=== PATIENT | female | born 1975 | race African-American/Black ===

== ENCOUNTER 2017-04-03 17:43 | Emergency (ER) | payer SELFPAY ==
[2017-04-03 18:53] LABS: BILIRUBIN,URINE NEGATIVE (NEG); CLARITY,URINE CLEAR; COLOR,URINE YELLOW; GLUCOSE,URINE NEGATIVE (NEG); NITRITE,URINE NEGATIVE (NEG); PROTEIN,URINE NEGATIVE (NEG-TRACE); UROBILINOGEN,URINE 0.2 mg/dL (0.2 mg/dL)
[2017-04-03 19:10] LABS: BACTERIA,URINE 0 /HPF (0-FEW); SQUAMOUS EPITHELIAL CELL,UR MOD /LPF; WBC,URINE 0 /HPF (0-4)
[2017-04-03 19:16] LABS: ADD MAN DIFF? NO
[2017-04-03 19:17] LABS: BASO # 0.1 x10^3/uL (0.0-0.2); BASO % 1 % (0-3); EOS # 0.1 x10^3/uL (0.0-0.7); EOS % 2 % (0-3); HEMATOCRIT 39.5 % (36.0-47.0); HEMOGLOBIN 13.6 g/dL (12.0-15.5); LYMPH # 2.3 x10^3/uL (1.0-4.8); LYMPH % 46 % (24-48); MEAN CORPUSCULAR HEMOGLOBIN 31 pg (25-35); MEAN CORPUSCULAR HGB CONC 35 g/dL (31-37); MEAN CORPUSCULAR VOLUME 91 fL (79-100); MONO # 0.2 x10^3/uL (0.0-1.1); MONO % 4 % (0-9); NEUT # 2.4 x10^3uL (1.8-7.7); NEUT % 47 % (31-73); PLATELET COUNT 345 x10^3/uL (140-400); RED BLOOD COUNT 4.33 x10^6/uL (3.50-5.40); RED CELL DISTRIBUTION WIDTH 13.8 % (11.5-14.5)
[2017-04-03] MEDS: IV NORMAL SALINE 1000ML BAG 1,000 ML IV ×2 (19:24)
[2017-04-03] MEDS: ONDANSETRON PF 4 MG/2 ML VIAL. IV ×2 (19:26)
[2017-04-03] MEDS: LIDO:MAALOX:DONNATAL 1:1:1 15 ML SINGLE DOSE SWSW ×2 (19:26)
[2017-04-03] MEDS: PANTOPRAZOLE IV PUSH 40 MG VIAL. IVP ×2 (19:27)
[2017-04-03] MEDS: fentaNYL PF VIAL 100 MCG/2 ML VIAL IV ×2 (19:28)
[2017-04-03 19:33] LABS: ANION GAP 5 (6-14); BLOOD UREA NITROGEN 10 mg/dL (7-20); BUN/CREATININE RATIO 13 (6-20); CALCIUM 8.7 mg/dL (8.5-10.1); CARBON DIOXIDE 30 mmol/L (21-32); CHLORIDE 104 mmol/L (98-107); CREATININE 0.8 mg/dL (0.6-1.0); GFR 96.6; GLUCOSE 92 mg/dL (70-99); POTASSIUM 3.9 mmol/L (3.5-5.1); SODIUM 139 mmol/L (136-145)
[2017-04-03 19:38] LABS: ALBUMIN 3.7 g/dL (3.4-5.0); ALK PHOS 78 U/L (46-116); ALT (SGPT) 17 U/L (14-59); AST (SGOT) 15 U/L (15-37); LIPASE 128 U/L (73-393); MAGNESIUM 2.1 mg/dL (1.8-2.4); TOTAL BILIRUBIN 0.3 mg/dL (0.2-1.0); TOTAL PROTEIN 7.3 g/dL (6.4-8.2)
[2017-04-03] MEDS: MORPHINE SULFATE 10 MG/ML VIAL. IV ×2 (20:44)
[2017-04-03] MEDS: FAMOTIDINE 20 MG TABLET. PO ×2 (20:44)
[2017-04-03] MEDS: PROMETHAZINE 12.5 MG in IV NORMAL SALINE 50ML 50 ML IV (20:44)
== END 2017-04-03 21:23 | disposition home or self-care (01) ==
LOC: ER 17:43
DX: R10.11 Right upper quadrant pain (principal); R10.13 Epigastric pain; R11.0 Nausea; R19.7 Diarrhea, unspecified; J45.909 Unspecified asthma, uncomplicated; Z90.710 Acquired absence of both cervix and uterus; Z91.041 Radiographic dye allergy status
CPT/HCPCS: 36415; 74176; 80053; 81001; 83690; 83735; 85025; 96361; 96365; 96375; 99285-25; C9113; J2270; J2405; J2550; J3010; J7030

== ENCOUNTER 2017-10-18 21:48 | Emergency (ER) | payer SELFPAY ==
[2017-04-03 21:10] VITALS: BP 141/83
[~2017-10-18 21:48] MED LIST: CYCL10TA2 PO; ERYT1OIN5 LEFTEYE; HYDR-971 PO; OMEP20TA63 PO; ONDA4TAB10 PO
== END 2017-10-18 22:48 | disposition left against medical advice (07) ==
LOC: ER 21:48
DX: N93.8 Other specified abnormal uterine and vaginal bleeding (principal); Z53.21 Procedure and treatment not carried out due to patient leaving prior to being seen by health care provider

== ENCOUNTER 2017-10-19 14:13 | Emergency (ER) | payer SELFPAY ==
[~2017-10-19] VITALS: Ht 160 cm; Wt 72.6 kg
[2017-10-19 15:31] LABS: BILIRUBIN,URINE NEGATIVE (NEG); CLARITY,URINE CLEAR; COLOR,URINE YELLOW; NITRITE,URINE NEGATIVE (NEG); PH,URINE 6.5; PROTEIN,URINE NEGATIVE (NEG-TRACE)
--- NOTE | 2017-10-19 16:00 | PHYS DOC ---
Past Medical History Past Medical History: No Pertinent History, Asthma Past Surgical History: Appendectomy, Hysterectomy, Other Additional Past Surgical Histo: BREAST REDUCTION,BLOOD CLOTS REMOVED FROM FALLOPIAN TUBES Alcohol Use: Occasionally Drug Use: None Adult General Chief Complaint Chief Complaint: VAGINAL BLEEDING [place] [facility] [employer] HPI Patient is a 42 year old female who presents with vaginal bleeding and some pelvic cramping. Patient noted some bleeding over the last 2 days that has improved. Now she only complains of some spotting on the tissue. Previously she had passed a small amount of blood and clots that she states was less than are normal.. She also has some pain. She denies vaginal discharge that is abnormal. The patient does engage in lesbian intercourse but does not insert anything into her vagina other than the nurse. She has not had a fever or chills. She is status post hysterectomy and complete oophorectomy. Review of Systems Review of Systems Constitutional: Denies fever or chills Eyes: Denies change in visual acuity HENT: Denies nasal congestion Respiratory: Denies cough or shortness of breath Cardiovascular: No additional information not addressed in HPI GI: Denies abdominal pain, nausea, vomiting : Denies dysuria Musculoskeletal: Denies back pain Integument: Denies rash Neurologic: Denies headache Endocrine: Denies polyuria All other systems were reviewed and found to be within normal limits, except as documented in this note. Allergies Allergies Allergies Coded Allergies Type Severity Reaction Last Updated Verified iodine Allergy Intermediate 07/18/14 Yes Iodine and Iodide Containing Produc Allergy Unknown 10/19/17 Yes Physical Exam Physical Exam Constitutional: Well developed, well nourished, no acute distress, non-toxic appearance HENT: Normocephalic, atraumatic, bilateral external ears normal, oropharynx moist, no oral exudates Eyes: PERRLA, EOMI, conjunctiva normal Neck: Normal range of motion Cardiovascular:Heart rate regular rhythm, no murmur Lungs & Thorax: Bilateral breath sounds clear to auscultation Abdomen: Bowel sounds normal, soft, no tenderness Skin: Warm, dry Back: No tenderness Neurologic: Alert and oriented X 3 Psychologic: Affect normal Pelvic: Normal female external genitalia. Vaginal mucosa is moist and noninflamed. Deep in the vagina along the anterior and posterior baez, there are some abrasions and injected tissue. There is some yellow/green discharge present in the vault. Current Patient Data Vital Signs Vital Signs Date Time Temp Pulse Resp B/P (MAP) Pulse Ox O2 Delivery O2 Flow Rate FiO2 10/19/17 14:33 98.8 90 16 157/104 (121) 100 Room Air 98.8 Lab Values Laboratory Tests Test 10/19/17 14:50 Urine Collection Type Void Urine Color Yellow Urine Clarity Clear Urine pH 6.5 Urine Specific [place] [facility] 1.020 Urine Protein Negative mg/dL (NEG-TRACE) Urine Glucose (UA) Negative mg/dL (NEG) Urine Ketones (Stick) Negative mg/dL (NEG) Urine Blood Small (NEG) Urine Nitrite Negative (NEG) Urine Bilirubin Negative (NEG) Urine Urobilinogen Dipstick 1.0 mg/dL (0.2 mg/dL) Urine Leukocyte Esterase Small (NEG) Urine RBC 3-5 /HPF (0-2) Urine WBC 1-4 /HPF (0-4) Urine Squamous Epithelial Cells Few /LPF Urine Bacteria Few /HPF (0-FEW) Urine Mucus Marked /LPF Microbiology 10/19/17 Wet Prep - Final, Complete EKG EKG [] Radiology/Procedures Radiology/Procedures Vaginal abrasion Course & Med Decision Making Course & Med Decision Making Pertinent Labs and Imaging studies reviewed. (See chart for details) 15:55: Patient is seen and examined for vaginal complaints. She is status post hysterectomy. Pelvic exam was completed and documented above. Examination was accompanied by female registered nurse. Suspect the source of her complaint to be abraded skin and tissue inside the vagina. Gonorrhea and chlamydia screening is completed although these seem unlikely given that the patient has a uterus. Trichomonas screen is also sent to lab and is pending. 16:20: All results are reviewed and discussed with the patient. There is no Trichomonas seen on wet mount. Gonorrhea and chlamydia are pending. Suspect the patient's source of bleeding to be some minor abrasions found during her vaginal exam. Proper lubrication is discussed with the patient for sexual activity. Patient will follow up with her primary doctor. All of her questions are answered prior to discharge home. Dragon Disclaimer Dragon Disclaimer This electronic medical record was generated, in whole or in part, using a voice recognition dictation system. Departure Departure Referrals: NO PCP (PCP) LEO POOL DO Oct 19, 2017 16:00
[2017-10-19 16:22] LABS: BACTERIA,URINE FEW /HPF (0-FEW); SQUAMOUS EPITHELIAL CELL,UR FEW /LPF
[2017-10-19 16:38] VITALS: BP 143/82
== END 2017-10-19 16:38 | disposition home or self-care (01) ==
LOC: ER 14:13
DX: S30.814A Abrasion of vagina and vulva, initial encounter (principal); J45.909 Unspecified asthma, uncomplicated; Z90.710 Acquired absence of both cervix and uterus; Z90.89 Acquired absence of other organs; Z91.041 Radiographic dye allergy status; X58.XXXA Exposure to other specified factors, initial encounter; Y93.89 Activity, other specified; Y92.89 Other specified places as the place of occurrence of the external cause; Y99.8 Other external cause status
CPT/HCPCS: 81001; 99284; Q0111

== ENCOUNTER 2019-04-05 10:45 | Emergency (ER) | payer SELFPAY ==
[~2019-04-05] VITALS: Ht 160 cm; Wt 71.8 kg
[~2019-04-05 10:45] MED LIST changes: +HYDR-3164 PO; -HYDR-971 PO
[2019-04-05 11:08] VITALS: BP 179/107
--- NOTE | 2019-04-05 11:30 | PHYS DOC ---
Past Medical History Past Medical History: No Pertinent History, Asthma, Other Additional Past Medical Histor: kidney stone removed Past Surgical History: Appendectomy, Hysterectomy, Other Additional Past Surgical Histo: BREAST REDUCTION,BLOOD CLOTS REMOVED FROM FALLOPIAN TUBES Alcohol Use: Occasionally Drug Use: None Adult General Chief Complaint Chief Complaint: JASMYNLER HPI HPI Patient is a 43 year old female who presents with left shoulder pain has been ongoing for 2 weeks. Patient denies any trauma. The patient states that started after she woke up. She states that the pain is worse when she moves her neck. Denies any additional symptoms. Complete ROS were reviewed and found to be within normal limits, except as documented in the HPI Allergies Allergies Allergies Coded Allergies Type Severity Reaction Last Updated Verified iodine Allergy Intermediate 07/18/14 Yes Iodine and Iodide Containing Produc Allergy Unknown 10/19/17 Yes Physical Exam Physical Exam Constitutional: Well developed, well nourished, no acute distress, non-toxic appearance. [] HENT: Normocephalic, atraumatic, bilateral external ears normal, oropharynx moist, no oral exudates, nose normal. [] Eyes: PERRLA, EOMI, conjunctiva normal, no discharge. [] Skin: Warm, dry, no erythema, no rash. [] Back: No tenderness, no CVA tenderness. [] Extremities: Trigger points in the Trapezius muscle. Neurologic: Alert and oriented X 3, normal motor function, normal sensory function, no focal deficits noted. [] Psychologic: Affect normal, judgement normal, mood normal. [] Current Patient Data Vital Signs Vital Signs Date Time Temp Pulse Resp B/P (MAP) Pulse Ox O2 Delivery O2 Flow Rate FiO2 04/05/19 11:08 98.1 76 18 179/107 (131) 99 Room Air 98.1 EKG EKG [] Radiology/Procedures Radiology/Procedures [] Course & Med Decision Making Course & Med Decision Making Pertinent Labs and Imaging studies reviewed. (See chart for details) Patient appears to have a musculoskeletal strain. Discussed non-pharmacological interventions for patient such as ThermaCare Heat patch, and foam roller. A medical screening exam was performed on this patient and the patient does not appear to be having a medical emergency. Her symptoms are not of sufficient severity and within reasonable medical probability it is unlikely the absence of immediate medical attention would result in placing the health of the individual (or, with respect to a woman, the health of the woman or her unborn child) in serious jeopardy, serious impairment to bodily functions, or serious dysfunction of any bodily organ or part. If , the patient is not in labor Dragon Disclaimer Dragon Disclaimer This electronic medical record was generated, in whole or in part, using a voice recognition dictation system. Departure Departure Impression: Primary Impression: Encounter for medical screening examination Disposition: HOME, SELF-CARE Condition: STABLE Referrals: NO PCP (PCP) Patient Instructions: Medical Screening Exam Additional Instructions: Thank you for visiting [facility]. We appreciate you trusting us with your care. If any additional problems come up don't hesitate to return to visit us. Please follow up with your primary care provider so they can plan additional care if needed and know about the problem that you had. If symptoms worsen come back to the Emergency Department. Any concerning symptoms that start such as chest pain, shortness of air, weakness or numbness on one side of the body, running high fevers or any other concerning symptoms return to the ER. OUMOU MUÑIZ APRN Apr 05, 2019 11:30
== END 2019-04-05 11:35 | disposition home or self-care (01) ==
LOC: ER 10:45
DX: M25.512 Pain in left shoulder (principal); J45.909 Unspecified asthma, uncomplicated; Z87.442 Personal history of urinary calculi; Z90.89 Acquired absence of other organs; Z90.710 Acquired absence of both cervix and uterus; Z98.890 Other specified postprocedural states; Z88.1 Allergy status to other antibiotic agents
CPT/HCPCS: 99281

== ENCOUNTER 2019-11-23 10:01 | Emergency (ER) | payer SELFPAY ==
[~2019-11-23] VITALS: Ht 160 cm; Wt 71.0 kg
[2019-11-23] MEDS ORDERED: FAMOTIDINE 20 MG/2 ML VIAL IVP ONE (10:45)
[2019-11-23] MEDS ORDERED: ONDANSETRON PF 4 MG/2 ML VIAL. IVP ONE (10:45)
--- NOTE | 2019-11-23 10:49 | PHYS DOC ---
Past Medical History Past Medical History: No Pertinent History, Asthma, Other Additional Past Medical Histor: kidney stone removed Past Surgical History: Appendectomy, Hysterectomy, Other Additional Past Surgical Histo: BREAST REDUCTION,BLOOD CLOTS REMOVED FROM FALLOPIAN TUBES Smoking Status: Former Smoker Alcohol Use: Occasionally Drug Use: None General Adult EDM: Chief Complaint: NAUSEA/VOMITING/DIARRHA HPI: HPI: 44-year-old female with history of nephrolithiasis, prior hysterectomy and appendectomy, who presents for evaluation of several hours of epigastric pain, dull and colicky, associated with nonbloody/nonbilious emesis. No diarrhea or constipation. Last bowel movement this morning, slightly loose. She also reports some back pain last week, that is more or less improved today. Review of Systems: Review of Systems: Gen: No fever, chills. Eyes: No blurred vision, diplopia. ENT: No nasal congestion, sore throat. CV: No CP, palpitations. Resp. No SOB, cough. GI: Reports epigastric abd pain, N/V. : No dysuria, hematuria. Neuro: No ASH, dizziness, weakness. MSK: No myalgia, arthralgia. Reports transient mid back pain. Skin: No acute rash or lesion. Heart Score: Risk Factors: Risk Factors: DM, Current or recent (<one month) smoker, HTN, HLP, family history of CAD, obesity. Risk Scores: Score 0 - 3: 2.5% MACE over next 6 weeks - Discharge Home Score 4 - 6: 20.3% MACE over next 6 weeks - Admit for Clinical Observation Score 7 - 10: 72.7% MACE over next 6 weeks - Early Invasive Strategies Current Medications: Current Medications Medications (Trade) Dose Ordered Sig/Michelle Start Time Stop Time Status Last Admin Dose Admin Famotidine (Pepcid Vial) 20 mg 1X ONCE 11/23/19 10:45 11/23/19 10:46 UNV Ondansetron HCl (Zofran) 4 mg 1X ONCE 11/23/19 10:45 11/23/19 10:46 UNV Allergies: Allergies: Allergies Coded Allergies Type Severity Reaction Last Updated Verified iodine Allergy Intermediate 07/18/14 Yes Iodine and Iodide Containing Produc Allergy Unknown 10/19/17 Yes Physical Exam: PE: Gen: NAD. Well nourished. Head: NC/AT. Eyes: No scleral icterus. No conjunctival injection. ENT: MMM. Posterior OP clear. Neck: Supple. NT. No JVD. CV: RRR. Peripheral pulses intact. Resp: CTAB. Abd: Soft. Nondistended. Mild midepigastric tenderness to deep palpation w ithout rebound, guarding, rigidity. MSK: No peripheral cyanosis. No edema. Neuro: A&Ox3. Strength & sensation grossly intact throughout. Skin. Warm. Dry. Psych: Appropriate mood & affect. Current Patient Data: Labs: Laboratory Tests Test 11/23/19 10:42 POC Urine HCG, Qualitative Hcg negative (Negative) EKG: EKG: [] Radiology/Procedures: Radiology/Procedures: Exam: CT abdomen/pelvis without intravenous contrast Indication: Epigastric pain, nausea and vomiting, history of hysterectomy and appendectomy Comparison: CT abdomen and pelvis 04/03/2017 Technique: Helical CT imaging performed of the abdomen and pelvis without the use of intravenous contrast. Sagittal and coronal reformats were obtained. One or more of the following individualized dose reduction techniques were utilized for this examination: 1. Automated exposure control 2. Adjustment of the mA and/or kV according to patient size 3. Use of iterative reconstruction technique. Findings: Inherently limited evaluation without intravenous contrast. Lower chest: Lung bases are clear. Heart is normal in size Liver: Normal Gallbladder/Biliary Tree: Normal Pancreas: Normal Spleen: Calcified splenic granulomas. No symmetrically. Adrenal Glands: Normal Kidneys/Ureters/Bladder: The kidneys are normal in size. No hydronephrosis or urolithiasis. Ureters are nondilated. Bladder is normal. Reproductive Organs: Uterus is surgically absent. No adnexal mass. Stomach, small bowel, and colon: Stomach is normal. No small bowel obstruction. There are surgical changes of appendectomy and left inguinal hernia repair. Vasculature: Abdominal aorta is normal in caliber. Minimal aortic calcifications. Lymph Nodes: No lymphadenopathy. Peritoneum and retroperitoneum: No free fluid or free air. Bones: No acute osseous abnormality Impression: No acute intra-abdominal/pelvic abnormality. Electronically signed by: Taisha Nguyen MD (11/23/2019 11:36 AM) [id number] Course & Med Decision Making: Course & Med Decision Making Pertinent Labs and Imaging studies reviewed. (See chart for details) In summary, 44-year-old female who presents for evaluation of several hours of upper abdominal pain, nausea and vomiting. No diarrhea, constipation, flank pain, dysuria, hematuria, fever or chills. Benign abdominal examination. Hemodynamically stable. Lab work is otherwise unrevealing. CT abdomen/pelvis fails to reveal any acute intra-abdominal pathology. Possible viral gastroenteritis. Remains well-appearing and nontoxic. Will be discharged home with prescriptions for Zofran, Pepcid, Bentyl. Return precautions given. Adryan Disclaimer: Adryan Disclaimer: This electronic medical record was generated, in whole or in part, using a voice recognition dictation system. Departure Departure Impression: Primary Impression: Epigastric abdominal pain Additional Impression: Nausea & vomiting Disposition: HOME, SELF-CARE Condition: STABLE Referrals: NO PCP (PCP) Patient Instructions: Viral Gastroenteritis, [id number] Scripts Famotidine (PEPCID) 20 Mg Tablet 20 MG PO BID, #30 TAB Prov: KELSEA MARTINEZ DO 11/23/19 Dicyclomine Hcl (DICYCLOMINE HCL) 10 Mg Capsule 1 CAP PO TID for abdominal cramping, #20 CAP 11 Refills Prov: KELSEA MARTINEZ DO 11/23/19 Ondansetron (ONDANSETRON ODT) 4 Mg Tab.rapdis 1 TAB PO PRN Q6-8HRS, #16 TAB Prov: KELSEA MARTINEZ DO 11/23/19 Justicifation of Admission Dx: Justifications for Admission: Justification of Admission Dx: N/A KELSEA MARTINEZ DO Nov 23, 2019 10:49
[2019-11-23] MEDS ORDERED: IV NORMAL SALINE 1000ML BAG 1,000 ML IV ONE (11:00)
[2019-11-23 11:39] LABS: BASO # 0.1 x10^3/uL (0.0-0.2); BASO % 1 % (0-3); EOS % 1 % (0-3); HEMATOCRIT 38.5 % (36.0-47.0); HEMOGLOBIN 13.4 g/dL (12.0-15.5); LYMPH # 1.3 x10^3/uL (1.0-4.8); LYMPH % 23 % (24-48); MEAN CORPUSCULAR HEMOGLOBIN 32 pg (25-35); MEAN CORPUSCULAR HGB CONC 35 g/dL (31-37); MEAN CORPUSCULAR VOLUME 91 fL (79-100); MONO # 0.2 x10^3/uL (0.0-1.1); MONO % 4 % (0-9); NEUT # 3.8 x10^3/uL (1.8-7.7); NEUT % 71 % (31-73); PLATELET COUNT 323 x10^3/uL (140-400); RED BLOOD COUNT 4.25 x10^6/uL (3.50-5.40); RED CELL DISTRIBUTION WIDTH 13.2 % (11.5-14.5); WHITE BLOOD COUNT 5.4 x10^3/uL (4.0-11.0)
--- NOTE | 2019-11-23 11:39 | RAD ---
Exam: CT abdomen/pelvis without intravenous contrast Indication: Epigastric pain, nausea and vomiting, history of hysterectomy and appendectomy Comparison: CT abdomen and pelvis 04/03/2017 Technique: Helical CT imaging performed of the abdomen and pelvis without the use of intravenous contrast. Sagittal and coronal reformats were obtained. One or more of the following individualized dose reduction techniques were utilized for this examination: 1. Automated exposure control 2. Adjustment of the mA and/or kV according to patient size 3. Use of iterative reconstruction technique. Findings: Inherently limited evaluation without intravenous contrast. Lower chest: Lung bases are clear. Heart is normal in size Liver: Normal Gallbladder/Biliary Tree: Normal Pancreas: Normal Spleen: Calcified splenic granulomas. No symmetrically. Adrenal Glands: Normal Kidneys/Ureters/Bladder: The kidneys are normal in size. No hydronephrosis or urolithiasis. Ureters are nondilated. Bladder is normal. Reproductive Organs: Uterus is surgically absent. No adnexal mass. Stomach, small bowel, and colon: Stomach is normal. No small bowel obstruction. There are surgical changes of appendectomy and left inguinal hernia repair. Vasculature: Abdominal aorta is normal in caliber. Minimal aortic calcifications. Lymph Nodes: No lymphadenopathy. Peritoneum and retroperitoneum: No free fluid or free air. Bones: No acute osseous abnormality Impression: No acute intra-abdominal/pelvic abnormality. Electronically signed by: Taisha Nguyen MD (11/23/2019 11:36 AM) [id number]
[2019-11-23 11:46] LABS: CREATININE 0.8 mg/dL (0.6-1.0); GFR 95.2
[2019-11-23 11:52] VITALS: BP 152/87
[2019-11-23 11:54] LABS: ALBUMIN 3.6 g/dL (3.4-5.0); MAGNESIUM 2.2 mg/dL (1.8-2.4); TOTAL BILIRUBIN 0.3 mg/dL (0.2-1.0); TOTAL PROTEIN 7.2 g/dL (6.4-8.2)
[2019-11-23] MEDS ORDERED: DICY10CA3 PO (12:01)
[2019-11-23] MEDS ORDERED: ONDA4TAB12 PO (12:01)
[2019-11-23] MEDS ORDERED: FAMO-63 PO (12:01)
== END 2019-11-23 12:08 | disposition home or self-care (01) ==
LOC: ER 10:01
DX: R10.13 Epigastric pain (principal); R11.2 Nausea with vomiting, unspecified; J45.909 Unspecified asthma, uncomplicated; Z90.89 Acquired absence of other organs; Z90.710 Acquired absence of both cervix and uterus; Z87.891 Personal history of nicotine dependence; Z98.890 Other specified postprocedural states
CPT/HCPCS: 36415; 74176; 80053; 81025; 83690; 83735; 84484; 85025; 93005; 96361; 96374; 96375; 99285; J2405; J3490; J7030